=== PATIENT | female | born 1965 | race Two or more races ===

== ENCOUNTER 2018-06-13 09:26 | Inpatient (IN) | payer OTHER, MEDICAID ==
[~2018-06-13] VITALS: Ht 165.1 cm; Wt 119.7 kg
[2018-06-13] MEDS ORDERED: SODIUM CHLORIDE 0.9% 1000ML BAG (SEPSIS BOLUS) IV ONE (10:30)
[2018-06-13 11:01] LABS: BASOPHILS % 0.3 % (0.0-2.0); EOSINOPHILS % 0.1 % (0.0-5.0); LYMPHOCYTES % 13.2 % (20.0-50.0); MEAN CORPUSCULAR VOLUME 89.8 fL (81.0-99.0); MEAN PLATELET VOLUME 7.7 fl (7.4-10.4); MONOCYTES % 10.7 % (2.0-8.0); NEUTROPHILS % 75.7 % (40.0-76.0); PLATELET 214 x1000/uL (130-400); RED BLOOD CELL COUNT 2.07 mill/uL (4.2-5.4); RED CELL DISTRIBUTION WIDTH 23.2 % (11.6-14.6)
[2018-06-13 11:07] LABS: CHLORIDE 101 mEq/L (98-107)
[2018-06-13 11:15] LABS: HEMATOCRIT. 18.6 % (36.0-48.0); HEMOGLOBIN. 6.4 g/dL (12.0-16.0)
[2018-06-13 12:18] LABS: PLATELET ESTIMATE NORMAL
[2018-06-13 13:26] LABS: INR 1.1; PROTHROMBIN TIME 11.5 sec (9.1-11.1)
[2018-06-13] MEDS ORDERED: FERR-71 PO (15:35)
[2018-06-13] MEDS ORDERED: IBUP-2029 PO (15:35)
[2018-06-13] MEDS ORDERED: DOCU-138 PO (15:35)
[2018-06-13] MEDS ORDERED: LOSA50TA20 PO (15:35)
[2018-06-13] MEDS ORDERED: AMLO10TA80 PO (15:35)
[2018-06-13 15:37] VITALS: BP 161/81
[2018-06-13] MEDS ORDERED: LOV40 SQ (15:47)
[2018-06-13 16:02] VITALS: BP 161/81
[2018-06-13 16:32] VITALS: BP 154/86
[2018-06-13] MEDS ORDERED: INFLUENZA VIRUS VACCINE(AFLURIA) 0.5ML SYR IM ONE (17:00)
[2018-06-13] MEDS ORDERED: CLONIDINE 0.1MG TABLET PO PRN (17:30)
[2018-06-13] MEDS ORDERED: HYDROCODONE/ACETAMINOPHEN 5/325MG TABLET PO PRN (17:30)
[2018-06-13] MEDS ORDERED: DOCUSATE SODIUM 100MG CAPSULE PO PRN (17:30)
[2018-06-13] MEDS ORDERED: ONDANSETRON HCL 4MG/2ML INJ IV PRN (17:30)
[2018-06-13] MEDS ORDERED: NA PHOS,M-B/NA PHOS,DI-BA ENEMA 118ML PR PRN (17:30)
[2018-06-13] MEDS ORDERED: GUAIFENESIN 200MG/10ML SUGAR FREE UDC PO PRN (17:30)
[2018-06-13] MEDS: FERROUS SULFATE 325MG TABLET PO SCH (18:10)
[2018-06-13] MEDS: ACETAMINOPHEN 325MG TABLET PO PRN (18:11)
[2018-06-13] MEDS: SODIUM CHLORIDE 0.45% 1,000 ML IV SCH (18:12)
[2018-06-13] MEDS ORDERED: CEFTRIAXONE 1 G PREMIX 50 ML IV SCH (19:00)
[2018-06-13] MEDS: ENOXAPARIN 120MG/0.8ML SYR SUBCUT SCH (19:06)
[2018-06-13 20:00] VITALS: BP 101/56
[2018-06-13] MEDS ORDERED: AZITHROMYCIN 500 MG in DEXT 5% WATER 250 ML IV SCH (20:00)
[2018-06-14] VITALS (10 sets, daily range): BP systolic 117–147; BP diastolic 52–81
[2018-06-14] MEDS: ACETAMINOPHEN 325MG TABLET PO PRN ×2 (02:03→08:24)
[2018-06-14] MEDS: ENOXAPARIN 120MG/0.8ML SYR SUBCUT SCH (06:19)
[2018-06-14 07:44] LABS: HEMATOCRIT. 23.5 % (36.0-48.0); HEMOGLOBIN. 8.2 g/dL (12.0-16.0); MEAN CORPUSCULAR HEMOGLOBIN 31.1 pg (28.0-32.0); MEAN CORPUSCULAR VOLUME 88.5 fL (81.0-99.0); MEAN PLATELET VOLUME 7.5 fl (7.4-10.4); PLATELET 197 x1000/uL (130-400); RED BLOOD CELL COUNT 2.65 mill/uL (4.2-5.4); RED CELL DISTRIBUTION WIDTH 21.2 % (11.6-14.6)
[2018-06-14 07:51] LABS: CHLORIDE 106 mEq/L (98-107)
[2018-06-14] MEDS: FERROUS SULFATE 325MG TABLET PO SCH (08:19)
[2018-06-14] MEDS ORDERED: AMLODIPINE 10MG TABLET PO SCH (09:00)
[2018-06-14] MEDS ORDERED: POTASSIUM CHLORIDE 20MEQ TABLET SR PO NR (09:30)
[2018-06-14] MEDS: SODIUM CHLORIDE 0.45% 1,000 ML IV SCH (10:25)
[2018-06-14] MEDS ORDERED: AZIT500T2 MT (11:45)
[2018-06-14 14:03] LABS: NUCLEATED RED BLOOD CELLS 1 /100 WBC; PLATELET ESTIMATE NORMAL
== END 2018-06-14 18:00 | disposition home or self-care (01) | DRG 139 ==
LOC: ER 09:26 → 7WST 11:31 → EDBEDREQ 11:34 → EDBEDREQSVC 11:34 → ENRESERV 12:03
PROVIDERS: ADMIT Hospitalist; ATTEND Hospitalist
PROC: 30233N1 Transfusion of Nonautologous Red Blood Cells into Peripheral Vein, Percutaneous Approach (ICD-10-PCS; principal; 2018-06-13)
DX: J18.9 Pneumonia, unspecified organism (principal); C55 Malignant neoplasm of uterus, part unspecified; E44.0 Moderate protein-calorie malnutrition; D63.8 Anemia in other chronic diseases classified elsewhere; I10 Essential (primary) hypertension; Z79.899 Other long term (current) drug therapy; Z86.711 Personal history of pulmonary embolism; Z92.21 Personal history of antineoplastic chemotherapy
CPT/HCPCS: 36415; 36430; 71045; 83605; 84145; 84443; 84484; 86850; 86900; 86920; 90686; 93005; 99291; J0456; J0696; J1650; J7030; J7040; J7060; P9016